=== PATIENT | male | born 1995 | race American Indian/Alaskan Native ===

== ENCOUNTER 2019-08-06 06:10 | Emergency (ER) | payer SELFPAY ==
[2019-08-06] MEDS ORDERED: SODIUM CHLORIDE 0.9% 500 ML 1,000 ML IV ONE (07:06)
[2019-08-06] MEDS ORDERED: CLINDAMYCIN 600 MG/50 mL 600 MG/50 ML BAG IV ONE (07:08)
--- NOTE | 2019-08-06 07:57 | XRay Report ---
CHEST 1 VIEW INDICATION / CLINICAL INFORMATION: possible Sepsis. COMPARISON: None available. FINDINGS: SUPPORT DEVICES: None. HEART / MEDIASTINUM: No significant abnormality. LUNGS / PLEURA: No significant pulmonary or pleural abnormality. No pneumothorax. ADDITIONAL FINDINGS: Segmental history mentation of the thoracic spine. IMPRESSION: 1. No acute findings. Signer Name: Kwaku Voss MD Signed: 08/06/2019 7:53 AM Workstation Name: [id number]
[2019-08-06 08:03] LABS: Basophils % (Auto) 0.2 % (0.0-1.8); Eosinophils % (Auto) 0.1 % (0.0-4.3); Hematocrit 48.9 % (35.5-45.6); Hemoglobin 17.1 gm/dl (11.8-15.2); Lymphocytes # (Auto) 1.1 K/mm3 (1.2-5.4); Lymphocytes % (Auto) 6.4 % (13.4-35.0); Mean Corpuscular HGB Conc 35 % (32-34); Mean Corpuscular Volume 89 fl (84-94); Monocytes # (Auto) 2.3 K/mm3 (0.0-0.8); Monocytes % (Auto) 13.2 % (0.0-7.3); Platelet Count 157 K/mm3 (140-440); Red Blood Count 5.51 M/mm3 (3.65-5.03); Red Cell Distribution Width 12.7 % (13.2-15.2)
[2019-08-06 08:14] LABS: INR 1.07 (0.87-1.13)
[2019-08-06 08:17] LABS: Alanine Aminotransferase 13 units/L (7-56); Albumin 4.5 g/dL (3.9-5); BUN/Creatinine Ratio 7; Blood Urea Nitrogen 6 mg/dL (9-20); Calcium 9.8 mg/dL (8.4-10.2); Hemolysis Index 7
[2019-08-06 08:20] LABS: Bilirubin,Direct < 0.2 mg/dL (0-0.2)
--- NOTE | 2019-08-06 09:14 | Emergency Department Report ---
ED General Adult HPI - General Chief complaint: Allergic Reaction Stated complaint: ALLERGIC REACTION TO PENASILIN/SWOLLEN NECK Time Seen by Provider: 08/06/19 07:05 Source: patient Mode of arrival: Ambulatory Limitations: No Limitations - History of Present Illness Initial comments: This is a 23-year-old man with no prior medical history. He does state he has never been tested for HIV. He took his mother's penicillin at home (self medicated) for a pharyngitis. He's had a sore throat for perhaps 5 days. He states he noted swelling in his left neck which has been progressive over the last 3 days. He is not drooling. He is able to swallow. He has no respiratory symptoms. He did not report fever or chills. -: Gradual, days(s) Location: left (sore throat, neck swelling) Consistency: constant Improves with: none Worsens with: none Associated Symptoms: denies other symptoms ED Review of Systems ROS: Stated complaint: ALLERGIC REACTION TO PENASILIN/SWOLLEN NECK Other details as noted in HPI Constitutional: denies: chills, fever Eyes: denies: eye pain, eye discharge, vision change ENT: as per HPI, throat pain, other. denies: ear pain Respiratory: denies: cough, shortness of breath, wheezing Cardiovascular: denies: chest pain, palpitations Endocrine: no symptoms reported Gastrointestinal: denies: abdominal pain, nausea, diarrhea Genitourinary: denies: urgency, dysuria Musculoskeletal: denies: back pain, joint swelling, arthralgia Skin: denies: rash, lesions Neurological: denies: headache, weakness, paresthesias Psychiatric: denies: anxiety, depression Hematological/Lymphatic: denies: easy bleeding, easy bruising ED Past Medical Hx - Past Medical History Previous Medical History?: No - Surgical History Past Surgical History?: Yes Additional Surgical History: Back - Social History Smoking Status: Current Some Day Smoker Substance Use Type: None ED Physical Exam - General Limitations: No Limitations General appearance: alert, in no apparent distress - Head Head exam: Present: atraumatic, normocephalic - Eye Eye exam: Present: normal appearance - ENT ENT exam: Present: mucous membranes moist, other (patient has erythema of bilateral tonsils. He has more tonsillar crypts and exudates on the left but no apparent abscess. His uvula is not swollen. His Airway is patent without edema.) - Neck Neck exam: Present: normal inspection, tenderness, other (the patient has a large left neck mass, it does feel warm. His trachea is midline.) - Respiratory Respiratory exam: Present: normal lung sounds bilaterally. Absent: respiratory distress - Cardiovascular Cardiovascular Exam: Present: regular rate, normal rhythm. Absent: systolic murmur, diastolic murmur, rubs, gallop - GI/Abdominal GI/Abdominal exam: Present: soft, normal bowel sounds. Absent: distended, tenderness, guarding, rebound - Rectal Rectal exam: Present: deferred - Extremities Exam Extremities exam: Present: normal inspection - Back Exam Back exam: Present: normal inspection - Neurological Exam Neurological exam: Present: alert, oriented X3, CN II-XII intact. Absent: motor sensory deficit - Psychiatric Psychiatric exam: Present: normal affect, normal mood - Skin Skin exam: Present: warm, dry, intact, normal color. Absent: rash ED Course Vital Signs 08/06/19 08/06/19 06:15 07:56 Temperature 96.0 F L Pulse Rate 97 H 74 Respiratory 18 18 Rate Blood Pressure 150/94 Blood Pressure 139/87 [Right] O2 Sat by Pulse 96 98 Oximetry - Reevaluation(s) Reevaluation #1: I have initiated call to [facility] for transfer of the patient to a facility with ENT. 08/06/19 09:18 08/06/19 12:01 [facility] was on bypass. Called Wyatt Ramos. There was a delay in getting the radiologist's report. Ultimately the ENT specialist accepted the patient at [facility]. She remained clinically stable. He is had no problems with his airway. He was made nothing by mouth. Accepted by Dr. Rodriguez, ENT. ED Medical Decision Making - Lab Data Result diagrams: 08/06/19 07:52 08/06/19 07:52 - Radiology Data Radiology results: image reviewed (chest x-ray nothing acute. CT of the neck shows a large left neck abscess. The trachea is patent. Awaiting radiologist interpretation) Critical care attestation.: If time is entered above; I have spent that time in minutes in the direct care of this critically ill patient, excluding procedure time. ED Disposition Clinical Impression: Abscess, neck Disposition: [id number]/TX-[id number] ANOTHER TYPE HLTHCARE Is pt being admited?: No Does the pt Need Aspirin: No Condition: Stable Referrals: JESSICA CARRILLO MD [Primary Care Provider] - 3-5 Days Time of Disposition: 12:06
[2019-08-06 09:22] LABS: Bilirubin,Urine NEG (Negative); Blood,Urine SM (Negative); Color,Urine Yellow (Yellow); Protein,Urine <15 mg/dL mg/dL (Negative); Urobilinogen,Urine < 2.0 mg/dL (<2.0)
--- NOTE | 2019-08-06 11:34 | Cat Scan Report ---
CT NECK WITH INTRAVENOUS CONTRAST AND MULTIPLANAR RECONSTRUCTION CLINICAL HISTORY: Swelling deep neck infection NOTE: This study was performed at 0850 Eastern standard time. The cath lab technologist did not notify the on-call neuroradiologist that the examination was performed. The reason for this is not known to me. I discovered the examination when I logged in at start of shift at 1000 hours, Central standard time. My cell phone log indicates that no additional attempted contacts were made from [facility], [place] during that interval. TECHNIQUE: 2.5mm thick contiguous axial scans were obtained from the skull base down to the aortic arch during i ntravenous contrast administration. In addition to evaluation of axial source images sagittal and cor onal multiplanar reconstructions were produced and reviewed for this report. Contrast dose report: Information not provided FINDINGS: A large multiloculated low-attenuation mass is present in the left neck deep to the sternocleidomasto id muscle. The overall size of this septated low-attenuation lesion is about 5.4 x 3.1 cm in transver se dimension by 5.4 cm in superior-inferior dimension. This likely represents an abscess but a necrot ic neoplastic process could produce a similar appearance. There is associated mass effect with medial displacement of the neurovascular bundle. There is mild rightward displacement of the airway. The ai rways adequate in caliber throughout. The lesion extends from a level just above the angle of the man dible down towards the level of the hyoid bone. Infiltrative changes likely representing cellulitis o r phlegmon is observed along the margins of this large abscess. The adjacent sternocleidomastoid musc le is enlarged likely related to inflammatory change. Reactive level 2 and 3 lymph nodes are demonstr ated in the left neck. Bilateral tonsillar enlargement is observed. Gas pockets are present within the tonsillar parenchyma bilaterally. This may represent gas within tonsillar crypts. The possibility of gas-forming infection in the tonsils bilaterally is considered unlikely but not entirely excluded based on the findings of this study. Asymmetry of the vallecula is noted. Correlation with direct visualization is suggested to exclude a mucosal lesion in the left vallecula. No abnormalities are seen at the level of the voca l cords along the visualized portions of the subglottic airway. No abnormalities are seen in evaluation of the oral cavity and tongue. The floor the mouth has an unr emarkable appearance. The parotid and submandibular salivary glands and the straight no intrinsic abnormalities. Evaluation of the nasal cavity reveals no abnormality. The paranasal sinuses are free from inflammato ry mucosal disease. Evaluation of the orbits a reveals no abnormality. The thyroid gland is normal in size and homogeneous in attenuation. No focal thyroid lesions are iden tified. Evaluation of the cervical spine reveals no abnormality. Normal alignment is maintained. No significa nt degenerative changes are identified. Evaluation of the lung apices reveals no abnormality. There is no indication of lung nodule or infilt rate. The visualized portions of the superior mediastinum have an unremarkable appearance. IMPRESSION: 1. Large mass producing lesion in the left neck likely reflects the presence of a multiloculated absc ess. Necrotic tumor could produce a similar appearance. Surgical consultation is advised. All CT imaging studies performed at this facility utilize dose modulation, iterative reconstruction o r weight based dosing, if appropriate, to obtain the lowest achievable radiation dose. Signer Name: Kwasi Heath MD Signed: 08/06/2019 11:30 AM Workstation Name: [id number]
[2019-08-06 13:22] VITALS: BP 123/77
== END 2019-08-06 14:01 | disposition other institution (70) ==
LOC: ED 06:10
DX: L02.11 Cutaneous abscess of neck (principal); F17.200 Nicotine dependence, unspecified, uncomplicated
CPT/HCPCS: 36415; 70491; 71045; 80048; 80076; 81001; 82140; 83735; 85025; 85610; 85730; 87040; 96365; 99285; J7040